=== PATIENT | female | born 1990 | race Caucasian/White ===

== ENCOUNTER 2017-09-18 21:37 | Emergency (ER) | payer MEDICAID ==
[~2017-09-18] VITALS: Ht 167.6 cm; Wt 72.5 kg
[2017-09-19 00:08] LABS: HCG UR LOT HCG706132
[2017-09-19 00:09] LABS: HCG UR OBC PASS
[2017-09-19] MEDS ORDERED: AZITHROMYCIN 500 MG TABLET PO ONE (01:00)
[2017-09-19] MEDS ORDERED: CEFTRIAXONE 250 MG IM ONE (01:00)
[2017-09-19] MEDS ORDERED: AZITHROMYCIN 500 MG TABLET ONE (01:13)
[2017-09-19] MEDS ORDERED: LIDOCAINE 1%, 10ML ONE (01:14)
[2017-09-19] MEDS ORDERED: CEFTRIAXONE 250 MG ONE (01:14)
[2017-09-19 01:28] VITALS: BP 126/74
== END 2017-09-19 01:41 | disposition home or self-care (01) ==
LOC: ED 09-19 00:27
DX: N72 Inflammatory disease of cervix uteri (principal)
CPT/HCPCS: 81003; 81025; 87210; 87491; 87591; 87808; 96372; 99284; J0696